=== PATIENT | male | born 1960 | race Caucasian/White ===

== ENCOUNTER → 2017-03-26 | Outpatient (CLI) | payer OTHER ==
[~2017-03-26] MED LIST: ?BP MED; AMLO10TA82 PO; CLON-378 PO; CLON0.3T4 PO; CPR500T PO; DOXY100C2 PO; ENLP10T PO; HCT25T PO; HYDR-34 PO; HYDR-3583 PO; HYDR-3720 PO; METR500T PO; MTP50T PO; NAPR-243 PO; SULF1TAB35 PO
[2017-03-26 13:23] LABS: BILIRUBIN,URINE NEGATIVE (NEGATIVE); CLARITY,URINE CLEAR; COLOR,URINE YELLOW; GLUCOSE, URINE (UA) NEGATIVE (NEGATIVE); KETONES,URINE NEGATIVE (NEGATIVE); LEUKOCYTE ESTERASE ,URINE NEGATIVE (NEGATIVE); NITRITE,URINE NEGATIVE (NEGATIVE); PH,URINE 6.5 (5-9); PROTEIN,URINE 1+ (NEGATIVE); UROBILINOGEN,URINE NORMAL (NORMAL)
[2017-03-26 13:34] LABS: BACTERIA,URINE NEGATIVE /HPF; WBC,URINE RARE /HPF
== END ==
LOC: LAB 13:09
PROVIDERS: ATTEND Orthopaedic Surgery Adult Reconstructive Orthopaedic Surgery
DX: Z01.812 Encounter for preprocedural laboratory examination (principal); Z96.652 Presence of left artificial knee joint
CPT/HCPCS: 81000

== ENCOUNTER → 2017-10-09 | Outpatient (CLI) | payer OTHER | LOC: LAB 13:10 | PROVIDERS: ATTEND Orthopaedic Surgery Adult Reconstructive Orthopaedic Surgery | DX: M25.562 Pain in left knee (principal) | CPT/HCPCS: 36415; 85652; 86141 ==

== ENCOUNTER → 2018-09-21 | Outpatient (CLI) | payer SELFPAY ==
[~2018-09-21] MED LIST changes: +CATHETER FLUSH 10 ML SYR IV PRN; +REGADENOSON 0.4 MG/5 ML SYR (LEXISCAN) IV ONE
[2018-09-21 09:27] VITALS: BP 155/106
[2018-09-21 09:32] VITALS: BP 160/109
[2018-09-21 09:41] VITALS: BP 224/134
[2018-09-21 09:43] VITALS: BP 224/134
--- NOTE | 2018-09-21 09:50 | NUR ---
DURING TREADMILL STRESS PATIENT VOMITTED. TREADMILL ABORTED AND PATIENT PERMISSION TO PROCEED WITH LEXISCAN. AFTER INJECTION OF LEXISCAN PATIENT STATES " I DRANK A 1/2 CUP OF COFFEE THIS MORNING."
--- NOTE | 2018-09-22 07:48 | STRESS TEST ---
DATE OF SERVICE: 09/21/2018 EXERCISE AND LEXISCAN MYOVIEW STRESS TEST REPORT Baseline heart rate is 47. Baseline blood pressure 155/106. Baseline EKG is sinus rhythm with no ischemic changes. In summary, the patient was injected with 10.4 mCi of technetium-99 Myoview and the resting images were obtained. Then, the patient started exercising with a baseline heart rate, blood pressure and EKG mentioned above. After 3 minutes and 25 seconds, the patient was unable to perform any further. Test was terminated and converted to Lexiscan Myoview stress test. The patient received 0.4 mg of Lexiscan followed by 30.1 mCi of technetium-99 Myoview. Throughout the test, there were no EKG changes. Occasional atrial and ventricular premature contractions were seen. The resting and stress images were reviewed and compared in the short axis, horizontal long axis, and vertical long axis views. Review of the images showed diaphragmatic attenuation with typical male pattern. No significant ischemia or infarction was seen. SSS is 0. TID value 1.08. On the gated images, the left ventricle appeared to be normal size with preserved systolic function. Calculated ejection fraction 48%. CONCLUSION: 1. The patient was unable to exercise beyond 3 minutes 25 seconds on standard Jerad protocol. Test was converted to Lexiscan Myoview stress test. 2. The patient tolerated Lexiscan well. 3. Diaphragmatic attenuation with typical male pattern with no ischemia or infarction on SPECT images. 4. Normal left ventricular size with preserved systolic function. Calculated ejection fraction 48%. Job ID: [id number] DocumentID: [id number] Dictated Date: 09/22/2018 07:29:53 Paper Machine Supervisor Date: 09/22/2018 07:47:49 Dictated By: EARL BEY MD
== END ==
LOC: CARD 07:36
PROVIDERS: ATTEND Internal Medicine Cardiovascular Disease
DX: R07.89 Other chest pain (principal); I11.9 Hypertensive heart disease without heart failure; I27.20 Pulmonary hypertension, unspecified; I08.3 Combined rheumatic disorders of mitral, aortic and tricuspid valves
CPT/HCPCS: 78452; 93017; 93306

== ENCOUNTER 2018-09-23 12:34 | Emergency (ER) | payer SELFPAY ==
[~2018-09-23] VITALS: Ht 188 cm; Wt 127.0 kg
[~2018-09-23 12:34] MED LIST changes: -CATHETER FLUSH 10 ML SYR IV PRN; -REGADENOSON 0.4 MG/5 ML SYR (LEXISCAN) IV ONE
--- OUTSIDE RECORDS SUMMARY | 2018-09-23 12:39 | XMS REPORT ---
Author Author Migration, Doctor Organization [facility] Address Unknown Phone Unavailable Care Team Providers Care Design Specialist Name Role Phone Migration, Doctor Unavailable Unavailable PROBLEMS Type Condition ICD9-CM Code ORD27-BA Code Onset Dates Condition Status SNOMED Code Problem Essential hypertension I10 Active [id number] ALLERGIES No Information ENCOUNTERS Encounter Location Date Diagnosis [facility] [id number] [place] [address] July, [facility] [id number] [place] [address] Jun, Essential hypertension I10 [facility] [id number] [place] [address] Jun, [facility] [id number] [place] [address] May, [facility] [id number] [place] [address] May, [facility] [id number] [place] [address] Aug, Essential hypertension I10 [facility] [id number] [place] [address] Aug, [facility] [id number] [place] [address] Aug, [facility] [id number] [place] [address] May, Hypertensive crisis I16.9 [facility] [id number] [place] [address] May, [facility] [id number] [place] [address] Mar, Hypertensive crisis I16.9 [facility] [address] [facility] [id number], [place] [address] Jan, Hypertensive crisis I16.9 [facility] [address] [facility] [id number], [place] [address] 14 Jun, 2014 [facility] [address] [facility] [id number], [place] [address] Jun, [facility] [address] [id number] Jun, [facility] [address] [id number] Jun, [facility] [address] [id number] Jun, [facility] [address] [id number] May, [facility] [address] [facility] [id number][place] [address] Feb, [facility] [address]65[address] [address] Dec, [facility] [address] [facility] [id number], [place] [address] Jun, [facility] [address] [id number], [place] [address] Feb, [facility] [address] [id number], [place] [address] Jan, IMMUNIZATIONS No Known Immunizations SOCIAL HISTORY Never Assessed [place] FOR V[place]IT [place] VITAL SIGNS MEDICATIONS Unknown Medications RESULTS No Results PROCEDURES No Known procedures INSTRUCTIONS MEDICATIONS ADMINISTERED No Known Medications MEDICAL (GENERAL) HISTORY Type Description Date Surgical History Knee replacement 03/2017 Hospitalization History knee replacement 03/2017
--- OUTSIDE RECORDS SUMMARY | 2018-09-23 12:39 | XMS REPORT ---
Author Author LUPE SANTIAGO [facility] Address [address] [place] [address] Care Team Providers Care Goods Layer Name Role Phone LUPE SANTIAGO Unavailable PROBLEMS Type Condition ICD9-CM Code WME31-DG Code Onset Dates Condition Status SNOMED Code Problem Essential hypertension I10 Active [id number] ALLERGIES Substance Reaction Event Type Date Status Codeine Unknown Drug Allergy Aug, Active ENCOUNTERS Encounter Location Date Diagnosis [facility] [id number] [place] [address] Aug, Essential hypertension I10 [facility] [id number] [place] [address] Aug, [facility] [id number] [place] [address] Aug, [facility] [id number] [place] [address] May, Hypertensive crisis I16.9 [facility] [id number] [place] [address] May, [facility] [id number] [place] [address] Mar, Hypertensive crisis I16.9 [facility] [address] [place] [address] Jan, Hypertensive crisis I16.9 [facility] [id number] [place] [address] Jun, [facility] [address] [place] [address] Jun, [facility] [address] [place] [id number] Jun, [facility] [address] [id number] Jun, [facility] [address] [id number] Jun, [address] [place] [id number] May, [facility] [address] [facility] [id number], [place] [address] Feb, [facility] [address] [facility] [id number], [place] [address] Dec, [facility] [address] [id number], [place] [address] Jun, [facility] [address] [id number], [place] [address] Feb, [facility] [address] [facility] [id number], [place] [address] Jan, IMMUNIZATIONS No Known Immunizations SOCIAL HISTORY Never Assessed REASON FOR VISIT MATHEW Peñaloza PLAN OF CARE Activity Details Follow Up 2 wk nurse BP check, 3 Months Reason:HTN VITAL SIGNS Height 74 in 2017-09-02 Weight 276 lbs 2017-09-02 Temperature 97.4 degrees Fahrenheit 2017-09-02 Heart Rate 88 bpm 2017-09-02 Respiratory Rate 20 2017-09-02 BMI 35.43 kg/m2 2017-09-02 Blood pressure systolic 192 mmHg 2017-09-02 Blood pressure diastolic 120 mmHg 2017-09-02 MEDICATIONS Medication Instructions Dosage Frequency Start Date End Date Duration Status Metoprolol Tartrate 50 MG Orally Twice a day 1 tablet with food 12h 30 Active Hydrochlorothiazide 25 mg 1 tablet by Oral route 1 time per day 24h Jun, 30 Active Clonidine HCl 0.3 MG Orally TID 1 tablet 8h 30 Active RESULTS No Results PROCEDURES No Known procedures INSTRUCTIONS MEDICATIONS ADMINISTERED No Known Medications MEDICAL (GENERAL) HISTORY Type Description Date Surgical History Knee replacement 03/2017 Hospitalization History knee replacement 03/2017
--- OUTSIDE RECORDS SUMMARY | 2018-09-23 12:39 | XMS REPORT ---
Author Author Migration, Doctor Organization [facility] Address Unknown Phone Unavailable Care Team Providers Care Artist'S Representative Name Role Phone Migration, Doctor Unavailable Unavailable PROBLEMS Type Condition ICD9-CM Code VVQ51-PP Code Onset Dates Condition Status SNOMED Code Problem Essential hypertension I10 Active [id number] ALLERGIES No Information ENCOUNTERS Encounter Location Date Diagnosis [facility] [id number] [place] [address] July, [facility] [id number] [place] [address] July, Essential hypertension I10 and Chest pain, unspecified type R07.9 [facility] [id number] [place] [address] Jun, Essential hypertension I10 [facility] [id number] [place] [address] Jun, [facility] [id number] [place] [address] May, [facility] [id number] [place] [address] May, [facility] [id number] [place] [address] Aug, Essential hypertension I10 [facility] [id number] [place] [address] Aug, [facility] [address] [address] Aug, [facility] [id number] [place] [address] May, Hypertensive crisis I16.9 [facility] [id number] [place] [address] May, [facility] [address] [facility] [id number], [place] [address] Mar, Hypertensive crisis I16.9 [facility] [address] [facility] [id number][place] [address] Jan, Hypertensive crisis I16.9 [facility] [address] [facility] [id number], [place] [address] 14 Jun, 2014 [facility] [address] [facility] [id number], [place] [address] Jun, [facility] [address] [place] [id number] Jun, [address] [id number] Jun, [address] [place] [id number] Jun, [address] [place] [id number] May, [facility] [address] [facility] [id number], [place] [address] Feb, [facility] [address] [facility] [id number], [place] [address] Dec, [facility] [address] [facility] [id number], [place] [address] Jun, [facility] [address] [facility] [id number], [place] [address] Feb, [facility] [address] [facility] [id number], [place] [address] Jan, IMMUNIZATIONS No Known Immunizations SOCIAL HISTORY Never Assessed [place]IT [place] [place] VITAL SIGNS MEDICATIONS Unknown Medications RESULTS No Results PROCEDURES No Known procedures INSTRUCTIONS MEDICATIONS ADMINISTERED No Known Medications MEDICAL (GENERAL) HISTORY Type Description Date Medical History Essential hypertension Surgical History Knee replacement 03/2017 Hospitalization History knee replacement 03/2017
--- OUTSIDE RECORDS SUMMARY | 2018-09-23 12:39 | XMS REPORT ---
Author Author LUPE SANTIAGO [facility] Address [address] [place] [address] Care Team Providers Care Loading Rack Supervisor Name Role Phone LUPE SANTIAGO Unavailable PROBLEMS Type Condition ICD9-CM Code DKB50-XL Code Onset Dates Condition Status SNOMED Code Problem Essential hypertension I10 Active 10118670 ALLERGIES No Information ENCOUNTERS Encounter Location Date Diagnosis [facility] [id number] [place] [address] Aug, Essential hypertension I10 [facility] [id number] [place] [address] Aug, [facility] [id number] [place] [address] Aug, [facility] [id number] [place] [address] May, Hypertensive crisis I16.9 [facility] [id number] [place] [address] May, [facility] [address] [place] [address] Mar, Hypertensive crisis I16.9 [facility] [address] [place] [address] Jan, Hypertensive crisis I16.9 [facility] [id number] [place] [address] Jun, [facility] [address] [place] [address] Jun, [facility] [address] [place] [id number] Jun, [facility] [address] [id number] Jun, [facility] [address] [id number] Jun, [facility] [address] [id number] May, [facility] [address] [facility] [id number] [address] Feb, [facility] [address] [facility] [id number][place] [address] Dec, [facility] [address] [facility] [id number], [place] [address] Jun, [facility] [address] [facility] [id number], [place] [address] Feb, [facility] [address] [facility] [id number][place] [address] Jan, IMMUNIZATIONS No Known Immunizations SOCIAL HISTORY Never Assessed REASON FOR VISIT BP check - hypertension. Pt was late for his appointment with Maximino today an d had to reschedule for tomorrow. Pt has not taken his medication for four days now and was instructed to arrive on-time for appointment tomorrow to discuss me dication refills. [facility] PLAN OF CARE VITAL SIGNS Height 74 in 2017-09-01 Blood pressure systolic 172 mmHg 2017-09-01 Blood pressure diastolic 112 mmHg 2017-09-01 MEDICATIONS Medication Instructions Dosage Frequency Start Date End Date Duration Status Triamcinolone Acetonide 0.1 % apply a thin layer to the affected area(s) by Topical route 3 times per day dispense 60 gram tube Jun, Unknown Clonidine HCl 0.3 MG Orally TID 1 tablet 8h 30 Unknown Metoprolol Tartrate 50 MG Orally Twice a day 1 tablet with food 12h 30 Unknown Hydrochlorothiazide 25 mg 1 tablet by Oral route 1 time per day Jun, Unknown Hydrochlorothiazide 50 mg Orally Once a day 1 tablet in the morning 24h Unknown Metoprolol Succinate 50 mg 1 tablet by Oral route 1 time per day 12h 16 Jun, 2012 Unknown Nortriptyline HCl 50 mg Orally Once a day 1 capsule at bedtime 24h Unknown amlodipine 10 mg 1 tablet by Oral route 1 time per day Jun, Unknown RESULTS No Results PROCEDURES No Known procedures INSTRUCTIONS MEDICATIONS ADMINISTERED No Known Medications MEDICAL (GENERAL) HISTORY Type Description Date Surgical History Knee replacement 03/2017 Hospitalization History knee replacement 03/2017
--- OUTSIDE RECORDS SUMMARY | 2018-09-23 12:39 | XMS REPORT ---
Author Author Migration, Doctor Organization [facility] Address Unknown Phone Unavailable Care Team Providers Care Rn Pacu Name Role Phone Migration, Doctor Unavailable Unavailable PROBLEMS Type Condition ICD9-CM Code BGH12-BV Code Onset Dates Condition Status SNOMED Code Problem Essential hypertension I10 Active 60063007 ALLERGIES No Information ENCOUNTERS Encounter Location Date Diagnosis [facility] [id number] [place] [address] July, [facility] [id number] [place] [address] Jun, Essential hypertension I10 [facility] [id number] [place] [address] Jun, [facility] [id number] [place] [address] May, [facility] [id number] [place] [address] May, [facility] [id number] [place] [address] Aug, Essential hypertension I10 [facility] [id number] [place] [address] Aug, [facility] [id number] [place] [address] Aug, [facility] [id number] [place] [address] May, Hypertensive crisis I16.9 [facility] [id number] [place] [address] May, [facility] [id number] [place] [address] Mar, Hypertensive crisis I16.9 [facility] [address] [facility] [place] [id number] [address] Jan, Hypertensive crisis I16.9 [facility] [address] [facility] [place] [id number], [place] [address] 14 Jun, 2014 [facility] [address] [facility] [place] [id number][place] [address] Jun, [facility] [address] [id number] Jun, [facility] [address] [id number] Jun, [facility] [address] [id number] Jun, [facility] [address] [id number] May, [facility] [address] [facility] [place] [id number], [place] [address] Feb, [facility] [address]65[address], [place] [address] Dec, [facility] [address] [facility] [place] [id number], [place] [address] Jun, [facility] [address] [id number], [place] [address] Feb, [facility] [address] [id number], [place] [address] Jan, IMMUNIZATIONS No Known Immunizations SOCIAL HISTORY Never Assessed REASON FOR VISIT [facility] PLAN OF CARE VITAL SIGNS MEDICATIONS Unknown Medications RESULTS No Results PROCEDURES No Known procedures INSTRUCTIONS MEDICATIONS ADMINISTERED No Known Medications MEDICAL (GENERAL) HISTORY Type Description Date Surgical History Knee replacement 03/2017 Hospitalization History knee replacement 03/2017
--- OUTSIDE RECORDS SUMMARY | 2018-09-23 12:40 | XMS REPORT ---
Author Author DEE ANNA Organization [facility] Address [address] [place] [address] Care Team Providers Care Marble Installer Supervisor Name Role Phone DEE ANNA Unavailable PROBLEMS Type Condition ICD9-CM Code GPB30-MD Code Onset Dates Condition Status SNOMED Code Problem Essential hypertension I10 Active [id number] ALLERGIES No Information ENCOUNTERS Encounter Location Date Diagnosis [facility] [id number] [place] [address] Aug, Essential hypertension I10 [facility] [id number] [place] [address] Aug, [facility] [id number] [place] [address] Aug, [facility] [id number] [place] [address] May, Hypertensive crisis I16.9 [facility] [id number] [place] [address] May, [facility] [id number] [place] [address] Mar, Hypertensive crisis I16.9 [facility] [address] [place] [address] Jan, Hypertensive crisis I16.9 [facility] [id number] [place] [address] Jun, [facility] [id number] [place] [address] Jun, [facility] [address] [place] [id number] Jun, [facility] [address] [place] [id number] Jun, [facility] [address] [place] [id number] Jun, [facility] [address] [id number] May, [facility] [address] [facility] [id number], [place] [address] Feb, [facility] [address] [facility] [id number], [place] [address] Dec, [facility] [address] [id number], [place] [address] Jun, [facility] [address] [facility] [id number], [place] [address] Feb, [facility] [address] [facility] [id number], [place] [address] Jan, IMMUNIZATIONS No Known Immunizations SOCIAL HISTORY Never Assessed REASON FOR VISIT Medication refill request PLAN OF CARE VITAL SIGNS MEDICATIONS Medication Instructions Dosage Frequency Start Date End Date Duration Status Metoprolol Tartrate 50 MG Orally Twice a day 1 tablet with food 12h 30 days Active RESULTS No Results PROCEDURES No Known procedures INSTRUCTIONS MEDICATIONS ADMINISTERED No Known Medications MEDICAL (GENERAL) HISTORY Type Description Date Surgical History Knee replacement 03/2017 Hospitalization History knee replacement 03/2017
--- OUTSIDE RECORDS SUMMARY | 2018-09-23 12:40 | XMS REPORT ---
Author Author DEE ANNA Organization [facility] Address [address] [place] [address] Care Team Providers Care Experimental Aircraft Mechanic Name Role Phone DEE ANNA Unavailable PROBLEMS Type Condition ICD9-CM Code YVO52-DT Code Onset Dates Condition Status SNOMED Code Problem Essential hypertension I10 Active [id number] ALLERGIES No Information ENCOUNTERS Encounter Location Date Diagnosis [facility] [id number] [place] [phone] Aug, Essential hypertension I10 [facility] [id number] [place] [phone] Aug, [facility] [id number] [place] [phone] Aug, [facility] [id number] [place] [address] May, Hypertensive crisis I16.9 [facility] [id number] [place] [phone] May, [facility] [id number] [place] [phone] Mar, Hypertensive crisis I16.9 [facility] [address] [place] [address] Jan, Hypertensive crisis I16.9 [facility] [id number] [place] [phone] Jun, [facility] [id number] [place] [phone] Jun, [facility] [address] [place] [id number] Jun, [facility] [address] [place] [id number] Jun, [facility] [address] [place] [id number] Jun, [facility] [address] [place] [id number] May, [facility] [address] [facility] [id number] [address] Feb, [facility] [address] [address] Dec, [facility] [address] [address] Jun, [facility] [address] [facility] [id number] [address] Feb, [facility] [id number] [address] Jan, IMMUNIZATIONS No Known Immunizations SOCIAL HISTORY Never Assessed REASON FOR VISIT PLAN OF CARE VITAL SIGNS MEDICATIONS Medication Instructions Dosage Frequency Start Date End Date Duration Status Clonidine HCl 0.3 MG Orally TID 1 tablet 8h Active RESULTS No Results PROCEDURES No Known procedures INSTRUCTIONS MEDICATIONS ADMINISTERED No Known Medications MEDICAL (GENERAL) HISTORY Type Description Date Surgical History Knee replacement 03/2017 Hospitalization History knee replacement 03/2017
--- OUTSIDE RECORDS SUMMARY | 2018-09-23 12:40 | XMS REPORT ---
Author Author DEE ANNA Organization [facility] Address [address] [place] [address] Care Team Providers Care Ssn/Ssbn Assistant Navigator Name Role Phone DEE ANNA Unavailable PROBLEMS Unknown Problems ALLERGIES Substance Reaction Event Type Date Status Codeine Unknown Drug Allergy Jan, Active ENCOUNTERS Encounter Location Date Diagnosis [facility] [id number] [place] [phone] May, Hypertensive crisis I16.9 [facility] [address] [place] [phone] May, [facility] [id number] [place] [phone] Mar, Hypertensive crisis I16.9 [facility] [address] [address] Jan, Hypertensive crisis I16.9 [facility] [address] [place] [phone] Jun, [facility] [address] [address] Jun, [facility] [address] [place] [id number] Jun, [facility] [address] [employer] [place] [id number] Jun, [facility] [address] [place] [id number] Jun, [facility] [address] [id number] May, [facility] [address] [address] Feb, [facility] [address] [place] [address] Dec, [facility] [address] [facility] [id number] [place] [address] Jun, [facility] [address] [facility] [id number] [place] [address] Feb, [facility] [address] [facility] [id number] [place] [address] Jan, IMMUNIZATIONS No Known Immunizations SOCIAL HISTORY Never Assessed REASON FOR VISIT high blood pressure- has been out of meds for a few weeks [facility] PLAN OF CARE VITAL SIGNS Height 74 in 2017-01-29 Weight 241 lbs 2017-01-29 Temperature 98.5 degrees Fahrenheit 2017-01-29 Heart Rate 84 bpm 2017-01-29 Respiratory Rate 20 2017-01-29 BMI 30.94 kg/m2 2017-01-29 Blood pressure systolic 164 mmHg 2017-01-29 Blood pressure diastolic 98 mmHg 2017-01-29 MEDICATIONS Medication Instructions Dosage Frequency Start Date End Date Duration Status Nortriptyline HCl 50 mg Orally Once a day 1 capsule at bedtime 24h Active Clonidine HCl 0.3 MG Orally TID 1 tablet 8h Active Metoprolol Tartrate 50 mg Orally Twice a day 1 tablet with food 12h Active Hydrochlorothiazide 50 mg Orally Once a day 1 tablet in the morning 24h Active RESULTS No Results PROCEDURES No Known procedures INSTRUCTIONS MEDICATIONS ADMINISTERED No Known Medications
--- OUTSIDE RECORDS SUMMARY | 2018-09-23 12:40 | XMS REPORT | Continuity of Care Document ---
Author Organization Unknown Address Unknown Allergies Active Description Code Type Severity Reaction Onset Reported/Identified Relationship to Patient Clinical Status Yes Codeine Drug Allergy 07/07/2012 Medications There is no data. Problems Date Dx Coded Attending Type Code Diagnosis Diagnosed By 03/28/2011 733.92 CHONDROMALACIA 03/28/2011 733.92 CHONDROMALACIA 03/28/2011 733.92 CHONDROMALACIA 03/28/2011 733.92 CHONDROMALACIA 05/26/2012 786.50 CHEST PAIN 05/26/2012 786.50 CHEST PAIN 05/26/2012 786.50 CHEST PAIN 05/26/2012 786.50 CHEST PAIN 07/07/2012 782.1 RASH 07/07/2012 782.1 RASH 07/07/2012 782.1 RASH 07/14/2012 401.1 HYPERTENSION, BENIGN ESSENTIAL 07/14/2012 401.1 HYPERTENSION, BENIGN ESSENTIAL Procedures There is no data. Results Test Result Range TSH - 08/05/18 11:24 TSH 1.15 mIU/L 0.40-4.50 Encounters ACCT No. Visit Date/Time Discharge Status Pt. Type Provider Facility Loc./Unit Complaint [id number] 08/05/2018 10:40:00 08/05/2018 23:59:59 CLS Outpatient LUPE SANTIAGO [facility] [id number] 08/05/2018 10:40:00 Document Registration [id number] 07/07/2012 09:21:00 07/07/2012 23:59:59 CLS Outpatient [id number] 05/26/2012 11:19:00 05/26/2012 23:59:59 CLS Outpatient [id number] 2012 09:30:00 Document Registration [id number] 07/14/2012 09:21:00 Document Registration
--- OUTSIDE RECORDS SUMMARY | 2018-09-23 12:40 | XMS REPORT ---
Author Author DEE ANNA Organization [facility] Address [address] [place] [address] Care Team Providers Care Counter Hand Name Role Phone DEE ANNA Unavailable PROBLEMS Type Condition ICD9-CM Code HGA97-AD Code Onset Dates Condition Status SNOMED Code Problem Essential hypertension I10 Active [id number] ALLERGIES No Information ENCOUNTERS Encounter Location Date Diagnosis [facility] [id number] [place] [address] Aug, Essential hypertension I10 [facility] [id number] [place] [address] Aug, [facility] [id number] [place] [address] Aug, [facility] [id number] [place] [address] May, Hypertensive crisis I16.9 [facility] [id number] [place] [address] May, [facility] [id number] [place] [address] Mar, Hypertensive crisis I16.9 [facility] [address] [place] [address] Jan, Hypertensive crisis I16.9 [facility] [id number] [place] [address] Jun, [facility] [id number] [place] [phone] Jun, [facility] [address] [place] [id number] Jun, [facility] [address] [place] [id number] Jun, [facility] [address] [place] [id number] Jun, [facility] [address] [place] [id number] May, [facility] [address] [facility] [id number] [address] Feb, [facility] [address] [address] Dec, [facility] [address] [address] Jun, [facility] [address] [facility] [id number] [address] Feb, [facility] [id number], [place] [address] Jan, IMMUNIZATIONS No Known Immunizations SOCIAL HISTORY Never Assessed REASON FOR VISIT medication request PLAN OF CARE VITAL SIGNS MEDICATIONS No Known Medications RESULTS No Results PROCEDURES No Known procedures INSTRUCTIONS MEDICATIONS ADMINISTERED No Known Medications MEDICAL (GENERAL) HISTORY Type Description Date Surgical History Knee replacement 03/2017 Hospitalization History knee replacement 03/2017
[2018-09-23] MEDS ORDERED: NS IV 1000 ML 1,000 ML IV SCH (13:00)
[2018-09-23] MEDS ORDERED: cloNIDine 0.1 MG (CATAPRES) TAB PO ONE (13:00)
[2018-09-23] MEDS ORDERED: ONDANSETRON 4 MG/2 ML (SDV) Z0FRAN IVP ONE (13:00)
[2018-09-23] MEDS ORDERED: KETOROLAC 30 MG/ML VIAL IVP ONE (13:00)
--- NOTE | 2018-09-23 13:00 | ED Abdominal Pain ---
General Chief Complaint: Abdominal/GI Problems Stated Complaint: ABD PAIN Source of Information: Patient Exam Limitations: No Limitations History of Present Illness Date Seen by Provider: Sep 23, 2018 Time Seen by Provider: 12:58 Initial Comments To ER with reports of right-sided abdominal pain that began Friday after a "treadmill test". Pain has been intermittent since then. He has intermittent nausea and vomiting. No fevers. Timing/Duration: 1-2 Days Severity/Quality: Moderate Location: RLQ Radiation: No Radiation Activities at Onset: None Associated Symptoms: Nausea/Vomiting Allergies and Home Medications Allergies Coded Allergies: codeine (Unverified Allergy, Mild, ITCHING, 02/24/09) Home Medications Amlodipine Besylate 10 Mg Tablet, 1 EACH PO DAILY Prescribed by: FRANK BARRETO on 05/05/121755 Clonidine Hcl 0.3 Mg Tablet, 1 EACH PO TID, (Reported) Clonidine Hcl 0.2 Mg Tab, 1 EACH PO BID Prescribed by: FRANK BARRETO on 05/05/121755 Doxycycline Hyclate 100 Mg Capsule, 1 EACH PO BID Prescribed by: FRANK BARRETO on 05/05/121908 Hydrochlorothiazide 25 Mg Tablet, 1 EACH PO DAILY Prescribed by: FRANK BARRETO on 05/05/121755 [?Bp Med] , BID, (Reported) Patient Home Medication List Home Medication List Reviewed: Yes Review of Systems Review of Systems Constitutional: see HPI; No chills, No fever EENTM: No Symptoms Reported Respiratory: No Symptoms Reported Cardiovascular: No Symptoms Reported Gastrointestinal: See HPI, Abdominal Pain; Denies Diarrhea; Nausea Genitourinary: No Symptoms Reported Musculoskeletal: no symptoms reported Skin: no symptoms reported Psychiatric/Neurological: No Symptoms Reported Endocrine: No Symptoms Reported Hematologic/Lymphatic: No Symptoms Reported Past Kpqfkgu-Fecosm-Czktxh Hx Patient Social History Alcohol Use: Denies Use Recreational Drug Use: No Smoking Status: Current Someday Smoker Recent Foreign Travel: No Contact w/Someone Who Travel: No Recent Hopitalizations: Yes (knee surgery, hernia operation several years in [place]) Past Medical History Respiratory: No Cardiac: Yes Neurological: No Reproductive Disorders: No Gastrointestinal: No Musculoskeletal: Yes (SLIPPED DISK IN BACK) Endocrine: No Cancer: No Psychosocial: No Integumentary: No Blood Disorders: No Physical Exam Vital Signs Vital Signs - First Documented 09/23/18 12:37 Temp 97.8 Pulse 69 Resp 18 B/P (MAP) 220/135 (163) Capillary Refill : Height/Weight/BMI Height: '" Weight: lbs. oz. kg; BMI Method:Stated General Appearance: WD/WN, no apparent distress HEENT: PERRL/EOMI, normal ENT inspection Respiratory: no respiratory distress, no accessory muscle use Gastrointestinal: normal bowel sounds, soft, tenderness (right lower quadrant) Extremities: normal range of motion, non-tender Neurologic/Psychiatric: alert, normal mood/affect, oriented x 3 Skin: normal color, warm/dry Progress/Results/Core Measures Results/Orders Lab Results Laboratory Tests Test 09/23/18 12:55 Range/Units White Blood Count 6.9 4.3-11.0 10^3/uL Red Blood Count 4.92 4.35-5.85 10^6/uL Hemoglobin 15.1 13.3-17.7 G/DL Hematocrit 42 40-54 % Mean Corpuscular Volume 86 80-99 FL Mean Corpuscular Hemoglobin 31 25-34 PG Mean Corpuscular Hemoglobin Concent 36 32-36 G/DL Red Cell Distribution Width 12.3 10.0-14.5 % Platelet Count 290 130-400 10^3/uL Mean Platelet Volume 9.2 7.4-10.4 FL Neutrophils (%) (Auto) 58 42-75 % Lymphocytes (%) (Auto) 23 12-44 % Monocytes (%) (Auto) 13 H 0-12 % Eosinophils (%) (Auto) 5 0-10 % Basophils (%) (Auto) 0 0-10 % Neutrophils # (Auto) 4.0 1.8-7.8 X 10^3 Lymphocytes # (Auto) 1.6 1.0-4.0 X 10^3 Monocytes # (Auto) 0.9 0.0-1.0 X 10^3 Eosinophils # (Auto) 0.4 H 0.0-0.3 10^3/uL Basophils # (Auto) 0.0 0.0-0.1 10^3/uL Sodium Level 134 L 135-145 MMOL/L Potassium Level 3.8 3.6-5.0 MMOL/L Chloride Level 96 L 98-107 MMOL/L Carbon Dioxide Level 29 21-32 MMOL/L Anion Gap 9 5-14 MMOL/L Blood Urea Nitrogen 18 7-18 MG/DL Creatinine 1.14 0.60-1.30 MG/DL Estimat Glomerular Filtration Rate > 60 BUN/Creatinine Ratio 16 Glucose Level 110 H 70-105 MG/DL Calcium Level 9.6 8.5-10.1 MG/DL Corrected Calcium 9.5 8.5-10.1 MG/DL Total Bilirubin 0.7 0.1-1.0 MG/DL Aspartate Amino Transf (AST/SGOT) 47 H 5-34 U/L Alanine Aminotransferase (ALT/SGPT) 69 H 0-55 U/L Alkaline Phosphatase 71 40-136 U/L Total Protein 7.0 6.4-8.2 GM/DL Albumin 4.1 3.2-4.5 GM/DL My Orders Orders - BRITNEY SHIN APRN Cbc With Automated Diff (09/23/18 12:56) Comprehensive Metabolic Panel (09/23/18 12:56) Ua Culture If Indicated (09/23/18 12:56) Drug Screen Stat (Urine) (09/23/18 12:56) Ed Iv/Invasive Line Start (09/23/18 12:56) Clonidine Tablet (Catapres Tablet) (09/23/18 13:00) Ketorolac Injection (Toradol Injection) (09/23/18 13:00) Ondansetron Injection (Zofran Injectio (09/23/18 13:00) Ns Iv 1000 Ml (Sodium Chloride 0.9%) (09/23/18 13:00) Ct Abd/Pelvis Wo(Kidney Stone) (09/23/18 12:56) Us Gallbladder 9[address] (09/23/18 13:41) Hydralazine Injection (Apresoline Inject (09/23/18 14:00) Amlodipine Tablet (Norvasc Tablet) (09/23/18 14:45) Lisinopril Tablet (Zestril Tablet) (09/23/18 14:45) Medications Given in ED Current Medications Medications Dose Ordered Sig/Audra Route Start Time Stop Time Status Last Admin Dose Admin Clonidine HCl 0.2 mg ONCE ONCE PO 09/23/18 13:00 09/23/18 13:01 DC 09/23/18 13:09 0.2 MG Hydralazine HCl 20 mg ONCE ONCE IV 09/23/18 14:00 09/23/18 14:01 DC 09/23/18 14:03 20 MG Ketorolac Tromethamine 15 mg ONCE ONCE IVP 09/23/18 13:00 09/23/18 13:01 DC 09/23/18 13:09 15 MG Lisinopril 10 mg ONCE ONCE PO 09/23/18 14:45 09/23/18 14:46 DC 09/23/18 14:59 10 MG Ondansetron HCl 4 mg ONCE ONCE IVP 09/23/18 13:00 09/23/18 13:01 DC 09/23/18 13:09 4 MG Vital Signs/I&O 09/23/18 09/23/18 12:37 14:22 Temp 97.8 Pulse 69 Resp 18 B/P (MAP) 220/135 (163) 180/103 (128) Departure Impression Primary Impression: Intermittent abdominal pain Disposition: 01 HOME, SELF-CARE Condition: Stable Departure-Patient Inst. Decision time for Depature: 15:08 Referrals: SAM RAMSEY BRETT D DO KIDO, TAKAAKI MD NO,LOCAL PHYSICIAN (PCP) Primary Care Physician Patient Instructions: Gallstones (DC) Add. Discharge Instructions: 1. Follow-up with surgeon of your choosing, these gallstones could be the cause of your pain. in the meantime bland diet without fatty foods or dairy products. All discharge instructions reviewed with patient and/or family. Voiced understanding. BRITNEY SHIN APRN Sep 23, 2018 13:00
[2018-09-23 13:05] LABS: BASOPHILS % (AUTO) 0 % (0-10); EOSINOPHILS # (AUTO) 0.4 10^3/uL (0.0-0.3); EOSINOPHILS % (AUTO) 5 % (0-10); HEMATOCRIT 42 % (40-54); HEMOGLOBIN 15.1 G/DL (13.3-17.7); LYMPHOCYTES # (AUTO) 1.6 X 10^3 (1.0-4.0); LYMPHOCYTES % (AUTO) 23 % (12-44); MEAN CORPUSCULAR HEMOGLOBIN 31 PG (25-34); MEAN CORPUSCULAR HGB CONC 36 G/DL (32-36); MEAN CORPUSCULAR VOLUME 86 FL (80-99); MEAN PLATELET VOLUME 9.2 FL (7.4-10.4); MONOCYTES # (AUTO) 0.9 X 10^3 (0.0-1.0); MONOCYTES % (AUTO) 13 % (0-12); NEUTROPHILS % (AUTO) 58 % (42-75); PLATELET COUNT 290 10^3/uL (130-400); RED CELL DISTRIBUTION WIDTH 12.3 % (10.0-14.5); WHITE BLOOD COUNT 6.9 10^3/uL (4.3-11.0)
[2018-09-23 13:25] LABS: ALANINE AMINOTRANSFERASE 69 U/L (0-55); ALBUMIN 4.1 GM/DL (3.2-4.5); ALKALINE PHOSPHATASE 71 U/L (40-136); BILIRUBIN,TOTAL 0.7 MG/DL (0.1-1.0); BUN/CREATININE RATIO 16; CALCIUM 9.6 MG/DL (8.5-10.1); CARBON DIOXIDE 29 MMOL/L (21-32); CHLORIDE 96 MMOL/L (98-107); CREATININE SERUM 1.14 MG/DL (0.60-1.30); GFR ESTIMATED > 60; GLUCOSE 110 MG/DL (70-105); POTASSIUM 3.8 MMOL/L (3.6-5.0); SODIUM 134 MMOL/L (135-145)
--- NOTE | 2018-09-23 13:51 | Diagnostic Imaging Report ---
PROCEDURE: CT urinary tract, rule out kidney stone. TECHNIQUE: Multiple contiguous axial images were obtained through the abdomen and pelvis without the use of intravenous contrast. Auto Exposure Controls were utilized during the CT exam to meet ALARA standards for radiation dose reduction. INDICATION: Abdominal/pelvic pain. Nausea. COMPARISON: 02/18/2012. FINDINGS: There are stones in the gallbladder but no bile duct dilatation and no findings to suggest acute cholecystitis. The gallbladder is unchanged from the prior exam. The liver parenchyma is unremarkable. There are a few right upper quadrant nicholas hepatis and portacaval lymph nodes, stable from 2011 and believed incidental. No radiodense kidney stone. There is no hydronephrosis. The adrenals and spleen as well as the uninfused pancreas are nonacute. There is no appendicitis or diverticulitis. There is no ascites, abscess, hematoma, or fluid collection. IMPRESSION: Chronic cholelithiasis. No obstructive features, inflammatory process, or acute appearing abdominal/pelvic abnormalities. Dictated by: Dictated on workstation # [id number]
[2018-09-23] MEDS ORDERED: hydrALAZINE (APESOLINE) 20 MG/ML VIAL IV ONE (14:00)
[2018-09-23 14:22] VITALS: BP 180/103
[2018-09-23] MEDS ORDERED: amLODIPine 5 MG (NORVASC) TAB PO ONE (14:45)
[2018-09-23] MEDS ORDERED: lisINopril 20 MG (PRINIVIL) TABLET PO ONE (14:45)
--- NOTE | 2018-09-23 14:46 | NUR ---
PATIENT REPORTS THAT HE CAN'T GIVE UA AT THIS TIME.
--- NOTE | 2018-09-23 14:51 | Diagnostic Imaging Report ---
PROCEDURE: US Gallbladder. TECHNIQUE: Multiple real-time grayscale images were obtained over the right upper quadrant in various projections. INDICATION: Abdominal pain. COMPARISON: CT abdomen and pelvis performed earlier same day. FINDINGS: The liver is normal in size and echogenicity. There is no focal hepatic mass. The main portal vein is patent with antegrade flow. Gallbladder is filled with numerous echogenic shadowing stones. No gallbladder wall thickening or pericholecystic fluid. The common bile duct measures up to 0.4 cm in diameter. No intrahepatic biliary dilation. The visualized portions of the pancreas are normal. Portions of the head and tail are obscured by overlying bowel gas, and were better assessed on recent CT. The right kidney is normal in size. No hydronephrosis, shadowing calculi, or suspicious mass lesion. IMPRESSION: 1. Cholelithiasis. No sonographic features of acute cholecystitis. 2. No biliary duct dilatation. Dictated by: Dictated on workstation # [id number]
--- NOTE | 2018-09-23 15:08 | NUR ---
AMB TO BATHROOM TO REPORTS TO HAVE BM STILL UNABLE TO GIVE UA.
[2018-09-23 15:16] VITALS: BP 164/117
== END 2018-09-23 15:22 | disposition home or self-care (01) ==
LOC: EDUNIT# 12:34 → ER 12:35
DX: R10.31 Right lower quadrant pain (principal); F17.200 Nicotine dependence, unspecified, uncomplicated; Z88.5 Allergy status to narcotic agent
CPT/HCPCS: 36415; 74176; 76705; 80053; 85025; 96361; 96374; 96375

== ENCOUNTER → 2020-10-27 | Outpatient (CLI) | payer SELFPAY ==
[~2020-10-27] MED LIST changes: +AMLO-251 PO; +AZIT250T12 PO; +CEFD300C3 PO; +CLON0.3T PO; +FURO-124 PO; +HYDR25TA4 PO; +METO50TA15 PO; +POTA10CA43 PO
--- NOTE | 2020-10-27 12:58 | Diagnostic Imaging Report ---
INDICATION: MIXED HYPERLIPIDEMIA, HYPERTENSION TECHNIQUE: Multiple real-time grayscale sonographic images, color and duplex Doppler images were obtained of the urinary system. FINDINGS: Aortic velocity: 50 cm/sec. RIGHT kidney: Size: 11.3 x 4.9 x 5.5 cm The right renal parenchyma and collecting system appear unremarkable. The right renal artery is visualized in its proximal, mid and distal aspect. Maximum renal artery velocity: 107cm/sec Maximum renal artery/aortic ratio: 2.1 LEFT kidney: Size: 11.9 x 5.3 x 5.0 cm The left renal parenchyma and collecting system appear unremarkable. The left renal artery is visualized in its proximal, mid and distal aspect. Maximum renal artery velocity: 82cm/sec Maximum renal artery/aortic ratio: 1.6 Bladder: Not imaged. IMPRESSION: 1. Unremarkable renal ultrasound with doppler. (RA/AO ratios > 3.0 may suggest potential hemodynamically significant stenosis.) Dictated by: Dictated on workstation # [id number]
== END ==
LOC: RAD 09:30
PROVIDERS: ATTEND Internal Medicine Cardiovascular Disease
DX: E78.2 Mixed hyperlipidemia (principal); I10 Essential (primary) hypertension
CPT/HCPCS: 76770; 93975

== ENCOUNTER 2021-03-30 14:53 | Emergency (ER) | payer SELFPAY ==
[~2021-03-30] VITALS: Ht 190.5 cm; Wt 136.1 kg
--- OUTSIDE RECORDS SUMMARY | 2021-03-30 14:59 | XMS REPORT | Clinical Summary ---
Author Author [facility] Organization [facility] Address Unknown Phone Unavailable Care Team Providers Care Shotblast Operator Name Role Phone Yunier Venegas MD PCP Allergies Comments Active Allergy Reactions Severity Noted Date Has used Oxycodone without issues Codeine Rash Low 04/02/2017 berries Other (Food) Swelling 04/02/2017 Medications End Date Status Medication Sig Dispensed Refills Start Date Active cloNIDine HCl (CATAPRES) Take 1 tablet 1 01/29 0.3 mg tablet by mouth 3 7 (three) times a day. Active hydroCHLOROthiazide Take 1 tablet 1 (HYDRODIURIL) 50 MG by mouth 7 tablet daily. Active metoprolol tartrate Take 1 tablet 1 (LOPRESSOR) 50 MG tablet by mouth 2 7 (two) times a day. Active nortriptyline (PAMELOR) Take 1 1 50 MG capsule capsule by 7 mouth nightly. Active aspirin 325 MG tablet Take 1 tablet 42 tablet 0 (325 mg 8 total) by mouth daily. 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 Social History Date Tobacco Use Types Packs/Day Years Used Current Every Day Smoker Cigarettes 0.5 7 Smokeless Tobacco: Never Used Comments Alcohol Use Standard Drinks/Week No 0 (1 standard drink = 0.6 o z pure alcohol) Sex Assigned at Date Recorded Not on file Last Filed Vital Signs Reading Time Taken Comments Vital Sign 144/85 04/04/2017 8:01 AM CONTAINER COORDINATOR Blood Pressure 71 04/04/2017 8:01 AM CONTAINER COORDINATOR Pulse 37 C (98.6 F) 04/04/2017 8:01 AM CONTAINER COORDINATOR Temperature 16 04/04/2017 8:01 AM CONTAINER COORDINATOR Respiratory Rate 98% 04/04/2017 8:01 AM CONTAINER COORDINATOR Oxygen Saturation - - Inhaled Oxygen Concentration 111.9 kg (246 lb 9.6 oz) 04/02/2017 8:07 AM CONTAINER COORDINATOR Weight 188 cm (6' 2") 04/02/2017 8:07 AM CONTAINER COORDINATOR Height 31.66 04/02/2017 8:07 AM CONTAINER COORDINATOR Body Mass Index Plan of Treatment Health Maintenance Due Date Last Done Comments Td/Tdap# 1960 Tobacco Cessation 1960 Counseling # Zoster Vaccine# (1 of 2) 2012 Influenza Vaccine (#1) 2020 Pneumococcal Vaccine: Aged Out No longer eligib le based on patient's age to Pediatrics (0 to 5 Years) complete this topic and At-Risk Patients (6 to 64 Years) Implants Device Identifier Shelf Expiration Date Model / Serial / L ot Implanted Type Area Manufactur er 06/27/2022 5964-050-14 / / [id number] Implant Knee Art Surf Lps-Flex Sz G Non-Tissue Left: Knee BRIDGETT H 7-10 14mm 5964-050-14 - Implant [id number] Implanted: Qty: 1 on 04/02/2017 by Yunier Venegas MD at [facility] Left Total Knee Results Not on filefrom Last 3 Months Insurance Type Payer Benefit Subscriber ID Effective Phone Address Plan / Dates Group WORKERS COMPENSATION MISC WORK [id number] [address] [address] [place] [address] WORKERS COMPENSATION [employer] [place] [id number] 2017 [address] [address] [place] [address] Advance Directives For more information, please contact: [phone] 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
--- NOTE | 2021-03-30 15:23 | ED Chest Pain ---
General Chief Complaint: Cardiac/General Problems Stated Complaint: WEAKNESS, L ARM NUMBESSS Source: patient Exam Limitations: no limitations History of Present Illness Date Seen by Provider: Mar 30, 2021 Time Seen by Provider: 15:01 Initial Comments Patient to the ER by private conveyance with chief complaint of chest pain in his anterior left chest and shoulder sometimes radiating down his arm. It has progressively gotten worse over the past 3 days. He also has exertional dyspnea even walking 30 feet today. He says about a year ago he had pneumonia. He is followed by Dr. Dao but does not have a primary care doctor. He has a history of hypertension and denies smoking diabetes or hyperlipidemia.MPI in 2019 was normal. He has a history of congestive heart failure, diastolic. Presently he has no chest pain. He denies fevers, nursing states he had a 99 degree temperature. Patient denies having COVID-19 vaccination. Allergies and Home Medications Allergies Coded Allergies: codeine (Unverified Allergy, Mild, ITCHING, 02/24/09) Patient Home Medication List Home Medication List Reviewed: Yes Amlodipine Besylate (Amlodipine Besylate) 10 Mg Tablet, 10 MG PO DAILY Prescribed by: ROXANNA FULLER on 06/03/20 1327 Azithromycin (Azithromycin) 250 Mg Tablet, 250 MG PO DAILY Prescribed by: ROXANNA FULLER on 06/03/20 1328 Benzonatate (Tessalon Perles) 100 Mg Capsule, 100 MG PO Q6H PRN for COUGH Prescribed by: CHRISTINE WEBER on 03/30/21 1725 Cefdinir (Cefdinir) 300 Mg Capsule, 300 MG PO BID Prescribed by: ROXANNA FULLER on 06/03/20 1327 Clonidine HCl (Clonidine HCl) 0.3 Mg Tablet, 0.3 MG PO TID, (Reported) Entered as Reported by: ELADIO FOSTER on 06/02/20 1534 Furosemide (Lasix) 40 Mg Tablet, 40 MG PO DAILY Prescribed by: ROXANNA FULLER on 06/03/20 1328 Metoprolol Tartrate (Metoprolol Tartrate) 50 Mg Tablet, 50 MG PO BID, (Reported) Entered as Reported by: ELADIO FOSTER on 06/02/20 1534 Ondansetron (Ondansetron Odt) 4 Mg Tab.rapdis, 4 MG PO Q6H PRN for NAUSEA/VOMITING Prescribed by: CHRISTINE WEBER on 03/30/21 1725 Potassium Chloride (Potassium Chloride) 10 Meq Capsule.er, 10 MEQ PO DAILY Prescribed by: ROXANNA FULLER on 06/03/20 1328 Review of Systems Review of Systems Constitutional: No chills, No diaphoresis EENTM: No Blurred Vision, No Double Vision Respiratory: Denies Cough; Shortness of Air, SOA With Exertion Cardiovascular: See HPI, Chest Pain; Denies Lightheadedness Gastrointestinal: Denies Abdominal Pain, Denies Constipated, Denies Diarrhea Genitourinary: Denies Burning, Denies Discharge Musculoskeletal: No back pain, No joint pain All Other Systems Reviewed Negative Unless Noted: Yes Past Ctwzmsu-Fxnkxl-Yqllse Hx Patient Social History Tobacco Use?: No Use of E-Cig and/or Vaping dev: No Substance use?: Yes Substance type: Marijuana Alcohol Use?: No Immunizations Up To Date Influenza Vaccine Up-to-Date: No; Not Current First/Initial COVID19 Vaccinat: NONE Second COVID19 Vaccination Eliecer: NONE Third COVID19 Vaccination Date: NONE COVID19 Vaccine 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 oz. 127.750983ei; 38.90 BMI Method:Stated General Appearance: WD/WN, Anxious, Obese HEENT: PERRL/EOMI, Pharynx Normal; No Moist Mucous Membranes Neck: Full Range of Motion, Normal Inspection Respiratory: No Accessory Muscle Use, No Respiratory Distress, Wheezing (Left worse than right) Cardiovascular: Regular Rate, Rhythm, Normal Peripheral Pulses Gastrointestinal: Normal Bowel Sounds, No Organomegaly Extremity: Normal Capillary Refill, Normal Inspection, No Pedal Edema Neurologic/Psychiatric: Alert, Oriented x3 Skin: Normal Color, Warm/Dry Progress/Results/Core Measures Results/Orders Lab Results Laboratory Tests Test 03/30/21 15:05 03/30/21 15:06 03/30/21 17:50 Range/Units Influenza Type A (RT-PCR) Not Detected Not Detecte Influenza Type B (RT-PCR) Not Detected Not Detecte SARS-CoV-2 RNA (RT-PCR) Detected H Not Detecte White Blood Count 6.1 4.3-11.0 10^3/uL Red Blood Count 5.05 4.30-5.52 10^6/uL Hemoglobin 15.8 13.3-17.7 g/dL Hematocrit 45 40-54 % Mean Corpuscular Volume 89 80-99 fL Mean Corpuscular Hemoglobin 31 25-34 pg Mean Corpuscular Hemoglobin Concent 35 32-36 g/dL Red Cell Distribution Width 12.1 10.0-14.5 % Platelet Count 233 130-400 10^3/uL Mean Platelet Volume 9.7 9.0-12.2 fL Immature Granulocyte % (Auto) 0 % Neutrophils (%) (Auto) 74 42-75 % Lymphocytes (%) (Auto) 15 12-44 % Monocytes (%) (Auto) 10 0-12 % Eosinophils (%) (Auto) 1 0-10 % Basophils (%) (Auto) 0 0-10 % Neutrophils # (Auto) 4.5 1.8-7.8 10^3/uL Lymphocytes # (Auto) 0.9 L 1.0-4.0 10^3/uL Monocytes # (Auto) 0.6 0.0-1.0 10^3/uL Eosinophils # (Auto) 0.1 0.0-0.3 10^3/uL Basophils # (Auto) 0.0 0.0-0.1 10^3/uL Immature Granulocyte # (Auto) 0.0 0.0-0.1 10^3/uL Prothrombin Time 12.8 12.2-14.7 SEC INR Comment 0.9 0.8-1.4 Activated Partial Thromboplast Time 34 24-35 SEC D-Dimer 0.40 0.00-0.49 UG/ML Sodium Level 128 L 135-145 MMOL/L Potassium Level 3.7 3.6-5.0 MMOL/L Chloride Level 89 L 98-107 MMOL/L Carbon Dioxide Level 26 21-32 MMOL/L Anion Gap 13 5-14 MMOL/L Blood Urea Nitrogen 22 H 7-18 MG/DL Creatinine 1.30 0.60-1.30 MG/DL Estimat Glomerular Filtration Rate 57 BUN/Creatinine Ratio 17 Glucose Level 180 H 70-105 MG/DL Calcium Level 8.5 8.5-10.1 MG/DL Corrected Calcium 8.9 8.5-10.1 MG/DL Magnesium Level 1.5 L 1.6-2.4 MG/DL Total Bilirubin 0.6 0.1-1.0 MG/DL Aspartate Amino Transf (AST/SGOT) 71 H 5-34 U/L Alanine Aminotransferase (ALT/SGPT) 108 H 0-55 U/L Alkaline Phosphatase 73 40-136 U/L Myoglobin 187.1 H 10.0-92.0 NG/ML Troponin I < 0.028 <0.028 NG/ML B-Type Natriuretic Peptide 41.8 <100.0 PG/ML Total Protein 7.0 6.4-8.2 GM/DL Albumin 3.5 3.2-4.5 GM/DL Lipase 53 8-78 U/L My Orders Orders - CHRISTINE WEBER Nitroglycerin 0.4 Mg Btl 25's (Nitrostat (03/30/21 15:30) Aspirin Chewable Tablet (Baby Aspirin Ch (03/30/21 15:30) Cbc With Automated Diff (03/30/21 15:16) Magnesium (03/30/21 15:16) Chest 1 View, Ap/Pa Only (03/30/21 15:16) Ekg Tracing (03/30/21 15:16) Comprehensive Metabolic Panel (03/30/21 15:16) Myoglobin Serum (03/30/21 15:16) Protime With Inr (03/30/21 15:16) Partial Thromboplastin Time (03/30/21 15:16) O2 (03/30/21 15:16) Monitor-Rhythm Ecg Trace Only (03/30/21 15:16) Lipid Panel (03/31/21 06:00) Ed Iv/Invasive Line Start (03/30/21 15:16) Lipase (03/30/21 15:16) Bnp Eloy (03/30/21 15:16) Fibrin Degradation Products (03/30/21 15:16) Troponin I Eloy (03/30/21 15:16) Acetaminophen Tablet (Tylenol Tablet) (03/30/21 15:30) Covid 19 Inhouse Test (03/30/21 15:39) Influenza A And B By Pcr (03/30/21 15:39) Rx-Albuterol Inhaler (Rx-Ventolin Hfa In (03/30/21 16:49) Troponin I Eloy (03/30/21 16:49) Epinephrine 1 Mg Injection (Adrenalin I (03/30/21 17:00) Diphenhydramine Injection (Benadryl Inje (03/30/21 17:00) Sotrovimab (Sotrovimab) (03/30/21 17:00) Acetaminophen Tablet (Tylenol Tablet) (03/30/21 17:00) Ondansetron Injection (Zofran Injectio (03/30/21 17:00) Ketorolac Injection (Toradol Injection) (03/30/21 17:30) Medications Given in ED Current Medications Medications Dose Ordered Sig/Audra Route Start Time Stop Time Status Last Admin Dose Admin Acetaminophen 1,000 mg ONCE ONCE PO 03/30/21 15:30 03/30/21 15:31 DC 03/30/21 15:24 1,000 MG Aspirin 324 mg ONCE ONCE PO 03/30/21 15:30 03/30/21 15:31 DC 03/30/21 15:22 324 MG Ketorolac Tromethamine 30 mg ONCE ONCE IVP 03/30/21 17:30 03/30/21 17:31 DC 03/30/21 17:48 30 MG Sotrovimab 500 mg/ Sodium Chloride 108 ml @ 216 mls/hr ONCE ONCE IV 03/30/21 17:00 03/30/21 17:29 DC 03/30/21 17:20 216 MLS/HR Vital Signs/I&O 03/30/21 03/30/21 14:58 17:19 Temp 37.3 35.9 Pulse 77 63 Resp 32 26 B/P (MAP) 209/126 (153) 153/107 Pulse Ox 91 95 O2 Delivery Room Air Room Air Progress Progress Note #1: Time: 15:23 Progress Note We will do a cardiac work-up give him some aspirin and nitroglycerin and Tylenol for his headache. If his Covid is negative we will give him a DuoNeb if is positive we will give him ProAir for his wheezing. Chest x-ray. Progress Note #2: Time: 16:44 Progress Note Patient's oxygen saturations while at rest are 91 to 94%. He is not complaining of any subjective shortness of breath at this time. We did discuss with him the use of monoclonal antibodies and the risks, benefits and alternatives. We discussed their use under emergency use authorization. We discussed that they may cause reawakening of latent infections and he denied having tuberculosis. The patient was provided with a handout on monoclonal antibodies and after reviewing it elected to do the infusion today. The patient was given Tylenol for headache. We will give him some magnesium, a liter of fluids and repeat a troponin at 1700. ProAir inhaler. Pharmacy is preparing his Sotromivab. Initial ECG Impression Date: Mar 30, 2021 Initial ECG Impression Time: 14:51 Initial ECG Rate: 77 Initial ECG Rhythm: Normal Sinus Initial ECG Intervals: QT (480) Initial ECG Impression: Normal Initial ECG Comparisson: Unchanged Comment Normal sinus rhythm without clinically relevant ST changes. Prolonged QTC 480 ms Diagnostic Imaging Diagonstic Imaging: Xray Plain Films/CT/US/NM/MRI: chest Comments [facility] [place], [place] NAME: LISSA CERNA V [facility] REC#: [id number] PT STATUS: REG ER : 1960 PHYSICIAN: CHRISTINE WEBER MD ADMIT DATE: 03/30/21/ER Signed Date of Exam:03/30/21 CHEST 1 VIEW, AP/PA ONLY EXAMINATION: Portable chest. COMPARISON: Prior study from June 03, 2020. INDICATION: Chest pain. FINDINGS: There is enlargement of the cardiac silhouette. There is some central pulmonary vascular congestion but the overall pulmonary vascular status is improved from the prior exam. There is no alveolar consolidation. There is no significant effusion or evidence of a pneumothorax. IMPRESSION: Enlarged cardiac silhouette with central pulmonary vascular congestion. The patient's pulmonary vascular status does appear improved from the comparison exam. Dictated by: Dictated on workstation # [id number] Dict: 03/30/21 1530 Trans: 03/30/21 1537 [facility] [id number] Interpreted by: ELISEO SHARIF MD Electronically signed by: ELISEO SHARIF MD 03/30/21 1537 Reviewed: Reviewed by Me Transfer of Care Time: 18:02 Care transferred to: Dr. Green Departure Impression Primary Impression: COVID-19 Disposition: 01 HOME, SELF-CARE Condition: Stable Departure-Patient Inst. Decision time for Depature: 16:51 Referrals: NO,LOCAL PHYSICIAN (PCP/Family) Primary Care Physician Patient Instructions: COVID-19 (DC), Sotrovimab FDA Fact Sheet Add. Discharge Instructions: Drink lots of fluids. Tylenol 1000 mg every 8 hours necessary for pain. Ibuprofen 800 mg every 8 hours necessary for pain. Tessalon Perles 1 capsule every 6 hours as necessary for cough. Zofran/ondansetron 1 tablet under the tongue every 6 hours as necessary for nausea and or vomiting. ProAir inhaler 2 puffs through the spacer every 4 hours as necessary for wheezing, shortness of air or coughing fits. Return to the ER if you are having significantly worsening symptoms, shortness of air resulting in oxygen saturations below 90% while at rest or other wo rrisome symptoms. All discharge instructions reviewed with patient and/or family. Voiced understanding. Scripts Benzonatate (TESSALON PERLES) 100 Mg Capsule 100 MG PO Q6H PRN for COUGH for 7 Days, #30 CAP 0 Refills Prov: CHRISTINE WEBER 03/30/21 Ondansetron (Ondansetron Odt) 4 Mg Tab.rapdis 4 MG PO Q6H PRN for NAUSEA/VOMITING, #15 TAB 0 Refills Prov: CHRISTINE WEBER 03/30/21 CHRISTINE WEBER Mar 30, 2021 15:23
[2021-03-30 15:28] LABS: BASOPHILS % (AUTO) 0 % (0-10); EOSINOPHILS # (AUTO) 0.1 10^3/uL (0.0-0.3); EOSINOPHILS % (AUTO) 1 % (0-10); HEMATOCRIT 45 % (40-54); HEMOGLOBIN 15.8 g/dL (13.3-17.7); LYMPHOCYTES # (AUTO) 0.9 10^3/uL (1.0-4.0); LYMPHOCYTES % (AUTO) 15 % (12-44); MEAN CORPUSCULAR HEMOGLOBIN 31 pg (25-34); MEAN CORPUSCULAR HGB CONC 35 g/dL (32-36); MEAN CORPUSCULAR VOLUME 89 fL (80-99); MEAN PLATELET VOLUME 9.7 fL (9.0-12.2); MONOCYTES # (AUTO) 0.6 10^3/uL (0.0-1.0); MONOCYTES % (AUTO) 10 % (0-12); NEUTROPHILS # (AUTO) 4.5 10^3/uL (1.8-7.8); NEUTROPHILS % (AUTO) 74 % (42-75); PLATELET COUNT 233 10^3/uL (130-400); WHITE BLOOD COUNT 6.1 10^3/uL (4.3-11.0)
[2021-03-30] MEDS ORDERED: ASPIRIN 81 MG CHEW (CHILDREN'S ASA) PO ONE (15:30)
[2021-03-30] MEDS ORDERED: ACETAMINOPHEN 500 MG TAB (TYLENOL) PO ONE (15:30)
[2021-03-30] MEDS ORDERED: NITROGLYCERIN 0.4 MG SL TABS BTL 25'S SL PRN (15:30)
--- NOTE | 2021-03-30 15:34 | Diagnostic Imaging Report ---
EXAMINATION: Portable chest. COMPARISON: Prior study from June 03, 2020. INDICATION: Chest pain. FINDINGS: There is enlargement of the cardiac silhouette. There is some central pulmonary vascular congestion but the overall pulmonary vascular status is improved from the prior exam. There is no alveolar consolidation. There is no significant effusion or evidence of a pneumothorax. IMPRESSION: Enlarged cardiac silhouette with central pulmonary vascular congestion. The patient's pulmonary vascular status does appear improved from the comparison exam. Dictated by: Dictated on workstation # [id number]
[2021-03-30 15:38] LABS: INR 0.9 (0.8-1.4); PROTHROMBIN TIME PATIENT 12.8 SEC (12.2-14.7)
[2021-03-30 15:39] LABS: ALBUMIN 3.5 GM/DL (3.2-4.5); POTASSIUM 3.7 MMOL/L (3.6-5.0)
[2021-03-30 15:40] LABS: CALCIUM 8.5 MG/DL (8.5-10.1)
[2021-03-30 15:43] LABS: BILIRUBIN,TOTAL 0.6 MG/DL (0.1-1.0)
[2021-03-30 15:45] LABS: CREATININE SERUM 1.3 MG/DL (0.60-1.30)
[2021-03-30 15:48] LABS: MAGNESIUM 1.5 MG/DL (1.6-2.4)
[2021-03-30] MEDS ORDERED: RX-ALBUTEROL INHALER 8.5 GM HFA (PROAIR) IH STA (16:49)
[2021-03-30] MEDS ORDERED: diphenhydrAMINE 50 MG/ML INJ (BENADRYL) IV PRN (17:00)
[2021-03-30] MEDS ORDERED: ACETAMINOPHEN 500 MG TAB (TYLENOL) PO PRN (17:00)
[2021-03-30] MEDS ORDERED: EPINEPHrine INJECTION 1 MG/ML AMP IM PRN (17:00)
[2021-03-30] MEDS ORDERED: ONDANSETRON 4 MG/2 ML (SDV) Z0FRAN IV PRN (17:00)
[2021-03-30] MEDS ORDERED: SOTROVIMAB 500 MG/NS 100 ML IVPB IV ONE ×2 (17:00)
[2021-03-30] MEDS ORDERED: BENZ100C18 PO (17:25)
[2021-03-30] MEDS ORDERED: ONDA4TAB11 PO (17:25)
[2021-03-30] MEDS ORDERED: KETOROLAC 30 MG/ML VIAL IVP ONE (17:30)
[2021-03-30 18:55] VITALS: BP 152/87
== END 2021-03-30 18:55 | disposition home or self-care (01) ==
LOC: EDUNIT# 14:53 → ER 14:55
DX: U07.1 COVID-19 (principal); I10 Essential (primary) hypertension; E66.9 Obesity, unspecified; Z68.38 Body mass index [BMI] 38.0-38.9, adult
CPT/HCPCS: 36415; 71045; 80053; 83690; 83735; 83874; 83880; 84484; 85025; 85379; 85610; 85730; 87636; 93005; 93041

== ENCOUNTER → 2021-04-18 | Outpatient (CLI) | payer SELFPAY ==
[~2021-04-18] MED LIST changes: +BENZ100C18 PO; +ONDA4TAB11 PO; +REGADENOSON 0.4 MG/5 ML SYR (LEXISCAN) IV ONE
[2021-04-18] MEDS: CATHETER FLUSH 10 ML SYR IV PRN ×2 (08:27→09:51)
[2021-04-18 09:50] VITALS: BP 177/104
--- NOTE | 2021-04-18 11:26 | Cardiology Stress Test Report ---
Stress Test Report Date of Procedure/Referring: Date of Procedure: Apr 18, 2021 PCP Earl Dao MD Admitting Physician No,Local Physician Indications: CP Baseline Heart Rate: 59 Baseline Blood Pressure: Blood Pressure Systolic: 177 Blood Pressure Diastolic: 104 Baseline Vitals Vital Signs Date Time Temp Pulse Resp B/P (MAP) Pulse Ox O2 Delivery O2 Flow Rate FiO2 04/18/21 09:50 64 16 177/104 (128) 96 Room Air Baseline EKG: Baseline EKG: NSR Summary After explaining the procedure to the patient, he signed a consent and then brought to the stress nuclear laboratory. Patient received 0.4 mg Lexiscan for stress test, ECG, heart rate and blood pressure were monitored continuously. Resting and stress dose of radio tracer were injected, imaging was acquired and reviewed in short axis, horizontal long axis and vertical long axis views. TID: 1.01 SSS: 0 SDS: 0 EF: 49 1. Patient tolerated Lexiscan well 2. Motion artifact affecting the quality of the images, diaphragmatic attenuation, there is no significant ischemia or infarction noted on SPECT images 3. Normal left ventricular size with mild hypokinesia of the inferior wall, ejection fraction 49% EARL DAO MD Apr 18, 2021 11:26
== END ==
LOC: CARD 08:15
PROVIDERS: ATTEND Internal Medicine Cardiovascular Disease
DX: I25.10 Atherosclerotic heart disease of native coronary artery without angina pectoris (principal); I10 Essential (primary) hypertension
CPT/HCPCS: 78452; 93017; A9502

== ENCOUNTER → 2021-08-15 | Outpatient (CLI) | payer MEDICAID ==
[~2021-08-15] MED LIST changes: -REGADENOSON 0.4 MG/5 ML SYR (LEXISCAN) IV ONE
--- NOTE | 2021-08-15 14:01 | Diagnostic Imaging Report ---
EXAMINATION: Chest 2 view HISTORY: DYSPNEA COMPARISON: 03/30/2021 FINDINGS: Heart size is normal. Mild prominence of the pulmonary vasculature. Mild interstitial opacities within the mid and lower lungs. No pleural effusion or pneumothorax. The osseous structures are intact. IMPRESSION: 1. Mild interstitial opacities within the mid and lower lungs which can be seen with pulmonary edema or atypical infection. Dictated by: Dictated on workstation # [id number]
== END ==
LOC: RAD 13:32
PROVIDERS: ATTEND Physician Assistant
DX: R91.8 Other nonspecific abnormal finding of lung field (principal); R06.00 Dyspnea, unspecified
CPT/HCPCS: 71046

== ENCOUNTER 2021-09-28 08:56 | Emergency (ER) | payer MEDICAID ==
[~2021-09-28] VITALS: Ht 182 cm; Wt 125.0 kg
[2021-09-28] MEDS ORDERED: ROCURONIUM 50 MG/5 ML (ZEMURON) VIAL IV ONE (08:58)
[2021-09-28] MEDS ORDERED: fentaNYL INJ 100 MCG/2 ML AMP IV ONE (08:58)
[2021-09-28] MEDS ORDERED: MIDAZOLAM 5 MG/5 ML (VERSED) VIAL IJ ONE (08:58)
[2021-09-28] MEDS ORDERED: KETAMINE HCL 100 MG/ML 5 ML VIAL IJ ONE (08:58)
[2021-09-28] MEDS ORDERED: ONDANSETRON 4 MG/2 ML (SDV) Z0FRAN ONE (09:08)
[2021-09-28] MEDS ORDERED: LABETALOL HCL 20 MG/4 ML VIAL ONE (09:10)
[2021-09-28] MEDS ORDERED: niCARdipine IV 50 MG in NS (IVPB) 230 ML IV SCH (09:15)
[2021-09-28] MEDS ORDERED: LABETALOL HCL 20 MG/4 ML VIAL IV ONE (09:15)
[2021-09-28 09:27] LABS: BASOPHILS # (AUTO) 0.1 10^3/uL (0.0-0.1); BASOPHILS % (AUTO) 0 % (0-10); EOSINOPHILS % (AUTO) 0 % (0-10); HEMATOCRIT 49 % (40-54); HEMOGLOBIN 17.4 g/dL (13.3-17.7); LYMPHOCYTES # (AUTO) 1.2 10^3/uL (1.0-4.0); LYMPHOCYTES % (AUTO) 8 % (12-44); MEAN CORPUSCULAR HEMOGLOBIN 31 pg (25-34); MEAN CORPUSCULAR HGB CONC 35 g/dL (32-36); MEAN CORPUSCULAR VOLUME 87 fL (80-99); MEAN PLATELET VOLUME 9.2 fL (9.0-12.2); MONOCYTES % (AUTO) 7 % (0-12); NEUTROPHILS # (AUTO) 12.4 10^3/uL (1.8-7.8); NEUTROPHILS % (AUTO) 84 % (42-75); PLATELET COUNT 293 10^3/uL (130-400); WHITE BLOOD COUNT 14.7 10^3/uL (4.3-11.0)
--- NOTE | 2021-09-28 09:29 | Diagnostic Imaging Report ---
PROCEDURE: CT head wo r/o stroke. TECHNIQUE: Multiple contiguous axial images were obtained through the brain without the use of intravenous contrast. Auto Exposure Controls were utilized during the CT exam to meet ALARA standards for radiation dose reduction. INDICATION: 61-year-old male, stroke like symptoms. Intracranial hemorrhage. CORRELATION STUDY: None FINDINGS: Examination compromised by streak and motion artifact. The left lateral ventricle is asymmetrically dilated and essentially nearly completely filled with acute blood. There is a small amount of blood in the dependent portion of the right lateral ventricle. There is blood filling the 3rd ventricle with small amount of blood in the 4th ventricle. There is mild to moderate bilateral hydrocephalus left greater than right. Basilar cisterns are very slightly effaced. There is bowing of the septum pellucidum left to right of approximately 1 cm. Also appears to be blood centered within the left thalamus. Diffusely increased density in the intracranial vessels. Bony calvarium intact. IMPRESSION: 1. Large, predominantly intraventricular hemorrhage disproportionate involving the dilated left lateral ventricle but also extension into the 3rd, contralateral right lateral ventricle and 4th ventricle. There is presence of obstructive hydrocephalus disproportionate greater involving left lateral ventricle. 2. Also appears to be acute hemorrhage centered within the left thalamus which may be the origin of the hemorrhage. Critical findings Findings have been discussed with Dr. Rizo, 9:18 AM. Dictated by: Dictated on workstation # [id number]
[2021-09-28] MEDS ORDERED: PROPOFOL DRIP (ICU) 100 ML IV ONE (09:39)
[2021-09-28 09:44] LABS: ALBUMIN 4.2 GM/DL (3.2-4.5)
[2021-09-28 09:45] LABS: CHLORIDE 97 MMOL/L (98-107); POTASSIUM 3.9 MMOL/L (3.6-5.0); SODIUM 135 MMOL/L (135-145)
[2021-09-28 09:46] LABS: CALCIUM 9.7 MG/DL (8.5-10.1)
[2021-09-28 09:47] LABS: FIBRIN DEGRADATION PRODUCTS 0.6 UG/ML (0.00-0.49); GLUCOSE 155 MG/DL (70-105); INR 0.9 (0.8-1.4); PROTHROMBIN TIME PATIENT 12.5 SEC (12.2-14.7)
[2021-09-28 09:48] LABS: CARBON DIOXIDE 28 MMOL/L (21-32)
[2021-09-28 09:49] LABS: BILIRUBIN,TOTAL 1.1 MG/DL (0.1-1.0)
--- NOTE | 2021-09-28 09:49 | ED Neurological Problem ---
General Chief Complaint: Neuro-Stroke Like Symptoms Stated Complaint: STROKE Source: patient, EMS Exam Limitations: clinical condition History of Present Illness Date Seen by Provider: Sep 28, 2021 Time Seen by Provider: 08:57 Initial Comments This 61-year-old gentleman presents to the emergency room with a last known well time 429. He was later found in his apartment with flaccid right side, right- sided facial droop, and garbled speech. He retains those deficits now. EMS reports a systolic blood pressure of 240. Patient is alert and does attempt to answer some questions. Accurate NIH cannot be obtained as he cannot follow instructions but is presumed to be a very high score. Patient had a negative stress test previously but does have history of CHF. Patient is not known to be anticoagulated based on review of history and medication filling record. Allergies and Home Medications Allergies Coded Allergies: codeine (Unverified Allergy, Mild, ITCHING, 02/24/09) Patient Home Medication List Home Medication List Reviewed: Yes Amlodipine Besylate (Amlodipine Besylate) 10 Mg Tablet, 10 MG PO DAILY Prescribed by: ROXANNA FULLER on 06/03/20 1327 Azithromycin (Azithromycin) 250 Mg Tablet, 250 MG PO DAILY Prescribed by: ROXANNA FULLER on 06/03/20 1328 Benzonatate (Tessalon Perles) 100 Mg Capsule, 100 MG PO Q6H PRN for COUGH Prescribed by: CHRISTINE WEBER on 03/30/21 1725 Cefdinir (Cefdinir) 300 Mg Capsule, 300 MG PO BID Prescribed by: ROXANNA FULLER on 06/03/20 1327 Clonidine HCl (Clonidine HCl) 0.3 Mg Tablet, 0.3 MG PO TID, (Reported) Entered as Reported by: ELADIO FOSTER on 06/02/20 153 Furosemide (Lasix) 40 Mg Tablet, 40 MG PO DAILY Prescribed by: ROXANNA FULLER on 06/03/20 1328 Metoprolol Tartrate (Metoprolol Tartrate) 50 Mg Tablet, 50 MG PO BID, (Reported) Entered as Reported by: ELADIO FOSTER on 06/02/20 1534 Ondansetron (Ondansetron Odt) 4 Mg Tab.rapdis, 4 MG PO Q6H PRN for NAUSEA/VOMITI NG Prescribed by: CHRISTINE WEBER on 03/30/21 1725 Potassium Chloride (Potassium Chloride) 10 Meq Capsule.er, 10 MEQ PO DAILY Prescribed by: ROXANNA FULLER on 06/03/20 1328 Review of Systems Review of Systems Constitutional: no symptoms reported Eyes: No Symptoms Reported Ears, Nose, Mouth, Throat: no symptoms reported Respiratory: no symptoms reported Cardiovascular: no symptoms reported Gastrointestinal: no symptoms reported Genitourinary: no symptoms reported Musculoskeletal: no symptoms reported Skin: no symptoms reported Psychiatric/Neurological: See HPI Endocrine: No Symptoms Reported Hematologic/Lymphatic: No Symptoms Reported Past Xhqnnev-[id number]-[id number] Hx Patient Social History Tobacco Use?: No Tobacco type used: Cigarettes Smoking Status: Former Smoker Substance use?: No Alcohol Use?: Unable to obtain Pt feels they are or have been: Unable to obtain Immunizations Up To Date First/Initial COVID19 Vaccinat: NONE Second COVID19 Vaccination Eliecer: NONE Third COVID19 Vaccination Date: NONE Past Medical History Surgery/Hospitalization HX: HTN Surgeries: Yes Abdominal (Hernia), Orthopedic (Knee) Respiratory: No Cardiac: Yes (History of NSTEMI with CHF) Hypertension Neurological: No Reproductive Disorders: No Genitourinary: No Gastrointestinal: No Musculoskeletal: Yes (SLIPPED DISK IN BACK) Endocrine: No HEENT: No Cancer: No Psychosocial: No Integumentary: No Blood Disorders: No Physical Exam Vital Signs Vital Signs - First Documented 09/28/21 09:02 Temp 36.4 Pulse 71 Resp 19 B/P (MAP) 212/128 (156) Pulse Ox 94 O2 Delivery Room Air Capillary Refill : Height, Weight, BMI Height: 6'2.00" Weight: 280lbs. oz. 127.745161zm; 37.00 BMI Method:Stated General Appearance: WD/WN, mild distress HEENT: PERRL/EOMI, normal ENT inspection Neck: normal inspection Respiratory: no respiratory distress; No crackles; rhonchi Cardiovascular: regular rate, rhythm, no edema, no murmur Gastrointestinal: non tender, soft; No distended Extremities: normal inspection, no pedal edema Neurologic/Psychiatric: alert, abnormal pediatric physical therapist II-XII (Right facial droop), motor weakness (Flaccid right side, generalized weakness on the left), disoriented x 3, other (Garbled speech. Can answer month of and some yes and no questions) Crainal Nerves: PERRL, abnormal speech, facial asymmetry, facial droop Skin: normal color, warm/dry Progress/Results/Core Measures Results/Orders Lab Results Laboratory Tests Test 09/28/21 09:17 09/28/21 09:22 Range/Units White Blood Count 14.7 H 4.3-11.0 10^3/uL Red Blood Count 5.68 H 4.30-5.52 10^6/uL Hemoglobin 17.4 13.3-17.7 g/dL Hematocrit 49 40-54 % Mean Corpuscular Volume 87 80-99 fL Mean Corpuscular Hemoglobin 31 25-34 pg Mean Corpuscular Hemoglobin Concent 35 32-36 g/dL Red Cell Distribution Width 11.8 10.0-14.5 % Platelet Count 293 130-400 10^3/uL Mean Platelet Volume 9.2 9.0-12.2 fL Immature Granulocyte % (Auto) 0 % Neutrophils (%) (Auto) 84 H 42-75 % Lymphocytes (%) (Auto) 8 L 12-44 % Monocytes (%) (Auto) 7 0-12 % Eosinophils (%) (Auto) 0 0-10 % Basophils (%) (Auto) 0 0-10 % Neutrophils # (Auto) 12.4 H 1.8-7.8 10^3/uL Lymphocytes # (Auto) 1.2 1.0-4.0 10^3/uL Monocytes # (Auto) 1.0 0.0-1.0 10^3/uL Eosinophils # (Auto) 0.0 0.0-0.3 10^3/uL Basophils # (Auto) 0.1 0.0-0.1 10^3/uL Immature Granulocyte # (Auto) 0.1 0.0-0.1 10^3/uL Neutrophils % (Manual) 84 % Lymphocytes % (Manual) 11 % Monocytes % (Manual) 4 % Eosinophils % (Manual) 0 % Basophils % (Manual) 0 % Band Neutrophils 1 % Blood Morphology Comment NORMAL Prothrombin Time 12.5 12.2-14.7 SEC INR Comment 0.9 0.8-1.4 Activated Partial Thromboplast Time 31 24-35 SEC D-Dimer 0.60 H 0.00-0.49 UG/ML Sodium Level 135 135-145 MMOL/L Potassium Level 3.9 3.6-5.0 MMOL/L Chloride Level 97 L 98-107 MMOL/L Carbon Dioxide Level 28 21-32 MMOL/L Anion Gap 10 5-14 MMOL/L Blood Urea Nitrogen 22 H 7-18 MG/DL Creatinine 1.34 H 0.60-1.30 MG/DL Estimat Glomerular Filtration Rate 61 BUN/Creatinine Ratio 16 Glucose Level 155 H 70-105 MG/DL Calcium Level 9.7 8.5-10.1 MG/DL Corrected Calcium 9.5 8.5-10.1 MG/DL Total Bilirubin 1.1 H 0.1-1.0 MG/DL Aspartate Amino Transf (AST/SGOT) 79 H 5-34 U/L Alanine Aminotransferase (ALT/SGPT) 105 H 0-55 U/L Alkaline Phosphatase 90 40-136 U/L Troponin I < 0.028 <0.028 NG/ML Total Protein 8.0 6.4-8.2 GM/DL Albumin 4.2 3.2-4.5 GM/DL Glucometer 127 H 70-110 MG/DL My Orders Orders - BRYCE FRYE MD Cbc With Automated Diff (09/28/21 08:59) Protime With Inr (09/28/21 08:59) Partial Thromboplastin Time (09/28/21 08:59) Comprehensive Metabolic Panel (09/28/21 08:59) Fibrin Degradation Products (09/28/21 08:59) Troponin I Eloy (09/28/21 08:59) Ua Culture If Indicated (09/28/21 08:59) Chest 1 View, Ap/Pa Only (09/28/21 08:59) Catheter(Urinary) Insert & Ass 03,15 (09/28/21 08:59) Ekg Tracing (09/28/21 08:59) Nothing By Mouth (09/28/21 Breakfast) Accucheck Stat ONCE (09/28/21 08:59) Ed Iv/Invasive Line Start (09/28/21 08:59) Ed Iv/Invasive Line Start (09/28/21 08:59) Vital Signs Stroke Patient Q15M (09/28/21 08:59) Ct Head Wo-R/O Stroke (09/28/21 08:59) O2 (09/28/21 08:59) Intake & Output 06,14,22 (09/28/21 08:59) Monitor-Rhythm Ecg Trace Only (09/28/21 08:59) Dysphagia Screening Tool Q10MX1 (09/28/21 08:59) Post Thrombolytic Adminstratio (09/28/21 08:59) Labetalol Injection (Normodyne Injection (09/28/21 09:15) Ondansetron Injection (Zofran Injectio (09/28/21 09:08) Ns (Ivpb) (Sodium C... W/Nicardipine Iv (09/28/21 09:15) Labetalol Injection (Normodyne Injection (09/28/21 09:10) Manual Differential (09/28/21 09:17) Propofol Drip (Icu) (Diprivan Drip (Icu) (09/28/21 09:39) Ns (Ivpb) (Sodium Chloride 0.9%) (09/28/21 10:25) Ns (Ivpb) (Sodium Chloride 0.9%) (09/28/21 10:45) Ondansetron Injection (Zofran Injectio (09/28/21 10:45) Fentanyl Inj (Sublimaze Injection) (09/28/21 08:58) Ketamine Injection (Ketalar Injection) (09/28/21 08:58) Midazolam Injection (Versed Injection) (09/28/21 08:58) Rocuronium Injection (Zemuron Injection) (09/28/21 08:58) Medications Given in ED Current Medications Medications Dose Ordered Sig/Audra Route Start Time Stop Time Status Last Admin Dose Admin Labetalol HCl 20 mg ONCE ONCE IV 09/28/21 09:15 09/28/21 09:16 DC 09/28/21 09:22 20 MG Ondansetron HCl 8 mg ONCE ONCE IVP 09/28/21 10:45 09/28/21 10:46 DC 09/28/21 09:10 8 MG Sodium Chloride 250 ml @ 999 mls/hr Q16M ONCE IV 09/28/21 10:45 09/28/21 11:00 DC 09/28/21 10:30 999 MLS/HR Vital Signs/I&O 09/28/21 09/28/21 09/28/21 09/28/21 09:02 09:23 09:43 10:17 Temp 36.4 Pulse 71 Resp 19 B/P (MAP) 212/128 (156) 212/128 187/96 174/117 Pulse Ox 94 O2 Delivery Room Air 09/28/21 10:34 Temp 36.4 Pulse 78 Resp 18 B/P (MAP) 174/117 Pulse Ox 99 O2 Delivery Mechanical Ventilator Blood Pressure Mean: 156 FSBG Bedside Testing Finger Stick Blood Glucose: 127 Blood Glucose Action Taken: rn notified Progress Progress Note #1: Time: 09:42 Progress Note Patient was taken immediately to CT upon arrival. CT revealed large hemorrhage on the left involving multiple ventricles possibly originating from the thalamus. Imaging was immediately reviewed by radiologist. I was able to contact Dr. Vee, neurosurgeon at [place]. Due to potential for vascular source and possible need for IR therapy, she declines transfer to [place]. We are trying [facility]. Flight crew's cannot fly to [place] due to weather. GCS 9. NIHSS could not be meaningfully obtained due to patient's inability to follow instructions or understand speech. Progress Note #2: Time: 10:04 Progress Note Transfer was accepted to [facility] by Dr. Lundberg in the ER. They do have IR capability for hemorrhagic stroke. Blood pressure is improving after labetalol 20 mg bolus and starting on Cardene drip. Systolic blood pressures are in the 150s. Likely is now here to transfer the patient. GCS was 9 and patient has had some decline in cognitive status. He also vomited while in the CT and was given Zofran 8 mg IV. For these reasons he is being intubated prior to transport. Flight crew is managing intubation presently. We have nursing staff attempting to contact family. To the best of our knowledge based on prior documentation in the chart, he should be a full CODE STATUS. Initial ECG Impression Date: Sep 28, 2021 Initial ECG Impression Time: 09:13 Initial ECG Rate: 71 Comment Sinus arrhythmia with no ST elevation or depression. No abnormal intervals or axis deviation. Diagnostic Imaging Diagonstic Imaging: CT Plain Films/CT/US/NM/MRI: head Comments CT head reviewed by me and report reviewed. See report below: NAME: LISSA CERNA V [facility] REC#: [id number] PT STATUS: REG ER : 1960 PHYSICIAN: BYRCE FRYE MD ADMIT DATE: 09/28/21/ER Draft Date of Exam:09/28/21 CT HEAD WO-R/O STROKE PROCEDURE: CT head wo r/o stroke. TECHNIQUE: Multiple contiguous axial images were obtained through the brain without the use of intravenous contrast. Auto Exposure Controls were utilized during the CT exam to meet ALARA standards for radiation dose reduction. INDICATION: 61-year-old male, stroke like symptoms. Intracranial hemorrhage. CORRELATION STUDY: None FINDINGS: Examination compromised by streak and motion artifact. The left lateral ventricle is asymmetrically dilated and essentially nearly completely filled with acute blood. There is a small amount of blood in the dependent portion of the right lateral ventricle. There is blood filling the 3rd ventricle with small amount of blood in the 4th ventricle. There is mild to moderate bilateral hydrocephalus left greater than right. Basilar cisterns are very slightly effaced. There is bowing of the septum pellucidum left to right of approximately 1 cm. Also appears to be blood centered within the left thalamus. Diffusely increased density in the intracranial vessels. Bony calvarium intact. IMPRESSION: 1. Large, predominantly intraventricular hemorrhage disproportionate involving the dilated left lateral ventricle but also extension into the 3rd, contralateral right lateral ventricle and 4th ventricle. There is presence of obstructive hydrocephalus disproportionate greater involving left lateral ventricle. 2. Also appears to be acute hemorrhage centered within the left thalamus which may be the origin of the hemorrhage. Critical findings Findings have been discussed with Dr. Rizo, 9:18 AM. Dictated on workstation # [id number] Dict: 09/28/2112 Trans: 09/28/21 0928 [facility] [id number] Interpreted by: EDGAR ALEXANDRA DO Diagonstic Imaging: Xray Plain Films/CT/US/NM/MRI: chest Comments NAME: LISSA CERNA V [facility] REC#: [id number] PT STATUS: REG ER : 1960 PHYSICIAN: BRYCE FRYE MD ADMIT DATE: 09/28/21/ER Draft Date of Exam:09/28/21 CHEST 1 VIEW, AP/PA ONLY Indication: Stroke. Time of Exam: 9:40 AM Correlation is made with prior chest from 03/30/2021. The heart is enlarged. There is central congestion but no overt failure. No effusion or pneumothorax is identified. IMPRESSION: Cardiomegaly and central congestion. Dictated on workstation # [id number] Dict: 09/28/21 0941 Trans: 09/28/21 0953 [facility] [id number] Interpreted by: ALFREDO ALBARADO MD Critical Care Note Critical Care Start Time: 08:57 Stop Time: 10:04 Total Time (minutes) 67 Departure Impression Primary Impression: Hemorrhagic stroke Additional Impression: Malignant hypertension Disposition: 02 XFER SHT-TRM HOSP Condition: Critical Transfer Transfer Reason: Exceeds level of care Time Spoke to Accepting Phy: 09:40 Transfer Progress Notes Transfer accepted by Dr. Lundberg in the ER. Transfer Time: 10:34 Transfer Facility: [facility] Method of Transfer: Air Departure-Patient Inst. Referrals: NO,LOCAL PHYSICIAN (PCP/Family) Primary Care Physician BRYEC FRYE MD Sep 28, 2021 09:49
[2021-09-28 09:50] LABS: ALKALINE PHOSPHATASE 90 U/L (40-136)
[2021-09-28 09:51] LABS: CREATININE SERUM 1.34 MG/DL (0.60-1.30); GFR ESTIMATED 61
[2021-09-28 09:52] LABS: BAND NEUTROPHILS 1 %; BASOPHILS % (MANUAL) 0 %; BUN/CREATININE RATIO 16; EOSINOPHILS % (MANUAL) 0 %; LYMPHOCYTES % (MANUAL) 11 %; MONOCYTES % (MANUAL) 4 %; NEUTROPHILS % (MANUAL) 84 %; RBC MORPH NORMAL
--- NOTE | 2021-09-28 09:53 | Diagnostic Imaging Report ---
Indication: Stroke. Time of Exam: 9:40 AM Correlation is made with prior chest from 03/30/2021. The heart is enlarged. There is central congestion but no overt failure. No effusion or pneumothorax is identified. IMPRESSION: Cardiomegaly and central congestion. Dictated by: Dictated on workstation # [id number]
[2021-09-28 09:54] LABS: ALANINE AMINOTRANSFERASE 105 U/L (0-55)
[2021-09-28] MEDS ORDERED: NS (IVPB) 250 ML ONE (10:25)
[2021-09-28 10:34] VITALS: BP 174/117
[2021-09-28] MEDS ORDERED: NS (IVPB) 250 ML IV ONE (10:45)
[2021-09-28] MEDS ORDERED: ONDANSETRON 4 MG/2 ML (SDV) Z0FRAN IVP ONE (10:45)
== END 2021-09-28 10:34 | disposition short-term general hospital (02) ==
LOC: EDUNIT# 08:56 → ER 08:57
DX: I62.9 Nontraumatic intracranial hemorrhage, unspecified (principal); I10 Essential (primary) hypertension; Z87.891 Personal history of nicotine dependence; Z28.310 Unvaccinated for COVID-19
CPT/HCPCS: 36415; 70450; 71045; 80053; 82947; 84484; 85007; 85027; 85379; 85610; 85730; 93005; 93041